=== PATIENT | male | born 1995 | race Caucasian/White ===

== ENCOUNTER 2023-08-14 10:45 | Emergency (ER) | payer MEDICAID, SELFPAY ==
[2023-08-14 10:51] VITALS: BP 178/93; PULSE 74; RESP 15; TEMP 36.9; O2SAT 98; BMI 30.9
--- NOTE | 2023-08-14 11:03 | XRR_ITS ---
PROCEDURE INFORMATION: Exam: XR Left Ankle Exam date and time: 08/14/2023 11:24 AM Age: 28 years old Clinical indication: Ankle; Left; Prior surgery; Surgery date: 6+ months; Patient HX: Pain swelling prev surgery; Additional info: Post operative pain TECHNIQUE: Imaging protocol: Radiologic exam of the left ankle. Views: 3 or more views. COMPARISON: No relevant prior studies available. FINDINGS: Tubes, catheters and devices: Intact hardware. Bones/joints: ORIF the distal tibia and fibula with syndesmotic repair as well. Anatomic alignment. Soft tissues: Normal. XR/XR ankle LT min 3V* [id number] IMPRESSION: Postoperative findings.
--- NOTE | 2023-08-14 11:03 | USCV_ITS ---
Noman Lord Age: 28 Gender: M : 1995 Exam Date: 08/14/2023 11:38 Ordering Phys: Malini Jones MD Technologist: ANTONY Exam Location: [facility] [place] Indication: LLE PAIN AND SWELLING HISTORY: Lower extremity swelling. Lower extremity pain. PROCEDURES: Venous duplex imaging was performed in only the left lower extremity. The following venous structures were evaluated: common femoral vein, profunda vein, proximal portion of the greater saphenous vein, superficial femoral vein, and the popliteal vein. In addition, the posterior tibial and peroneal trunk were evaluated. Serial compression, augmentation maneuvers, and spectral Doppler flow evaluation were performed. FINDINGS: + DVT seen in Left Pop vein into 1 of the Peroneal Veins Per oscar given to Dr. Jones CONCLUSIONS DVT LEFT popliteal vein and peroneal vein Remainder normal Prelim to Dr Jones at time of study Antelmo Rogel MD (Electronically Signed) Final Date: 14 August 2023 13:00 S
--- NOTE | 2023-08-14 11:05 | ED_ITS ---
HPI - Extremity Problem General: Chief complaint: Extremity Problem,Nontraumatic Stated complaint: left ankle pain and swelling Time Seen by Provider: 08/14/23 10:56 History of Present Illness: 28-year-old male who presents with left leg and left ankle pain and swelling. The patient is postoperative from recent ankle fracture repair. He states he has been released from wearing his postoperative boot. He states he has been walking on the leg more than he probably should be and because of that, he is developed pain in the ankle joint as well as swelling in the left lower leg from the knee down. He denies trauma to the area other than being up on it walking more than he probably was supposed to in the postoperative time. No fever. He denies shortness of breath or chest pain. No prior history of DVT or pulmonary emboli. He has not been taking anything for the pain. MD Complaint: extremity pain and joint swelling Review of Systems General: Reports: Other (Negative except per HPI, no fever) Physical Exam Narrative: EXAM NARRATIVE: Well-developed well-nourished white male in no acute distress HENMT: OTHER: Conjunctiva pink, mucous membranes are moist Resp: OTHER: Nonlabored respiratory effort Cardio: OTHER: Heart regular Extremity: LEFT LOWER EXTREMITY: Yes lower leg Left lower leg: Yes inspection (Left leg appears swollen from below the knee to include the ankle and foot ), Yes palpation (Tenderness of the left calf as well as the left ankle, negative Homans' sig) and Yes neurovascular exam (Intact distal neurovascular function, cap refills less than 2 seconds) and Yes ankle joint OTHER: Healed incisions over both the medial and lateral malleolar I without erythema or discharge. There is tenderness primarily over the medial malleolus region. Pulses are intact. Distal neurovascular function is intact. Course ED course: X-rays show postoperative changes with no lucency or displacement of the postoperative hardware. There is no acute fracture. Venous Doppler does show DVT extending from the popliteal vein into the peroneal veins. Will initiate Eliquis therapy. Will place a social sciences professor referral for follow-up with her primary care provider. Will have the patient follow-up with his orthopedic surgeon in the next couple of weeks. He has been instructed to elevate the leg when possible and wear compression stockings. It has been discussed with him the importance of him taking Eliquis. Return precautions have been discussed including increased pain, increased swelling, development of chest pain or shortness of breath Vital Signs: Vital signs: Vital Signs Temperature 98.4 F 08/14/23 10:51 Pulse Rate 74 08/14/23 10:51 Respiratory Rate 15 08/14/23 10:51 Blood Pressure 178/93 08/14/23 10:51 Pulse Oximetry 98 08/14/23 10:51 Oxygen Delivery Me thod Room Air 08/14/23 10:51 MDM - Extremity (Nontraumatic) Medical Decision Making Patient is postoperative from the left ankle ORIF from a recent fracture with both medial and lateral malleolar incisions which appear well-healed. Will obtain a plain x-ray to rule out new fracture or dislodgment of operative hardware. Will also obtain a venous Doppler to rule out a DVT as he has generalized swelling of the calf and tenderness of the left calf. There is no skin erythema or warmth and he is afebrile, I do not feel that it is likely cellulitis. Differential Diagnosis Likely gout, cellulitis, superficial thrombophlebitis, lower extremity edema and deep vein thrombosis of lower extremity Lab Data Radiology Impressions Ankle X-Ray 08/14/23 11:03 IMPRESSION: Postoperative findings. Imaging Data Xray Ortho: My impression: No acute fracture or dislocation, postoperative hardware appears intact without lucency or displacement. US Vascular: Radiologist's impression: Per household appliances service technician, patient with DVT extending from the popliteal to the peroneal veins. XR interpretation done by ED provider, pending radiology final review Discharge Plan Discharge Patient Disposition: Home Clinical Impression: Deep vein thrombosis of lower extremity Condition: Stable Prescriptions: New Eliquis DVT-PE Treat 30D Start 5 mg (74 tabs) tablets,dose pack See Rx Instructions .ROUTE .COMPLEX Qty: 74 0RF Rx Instructions: orally per package directions Discharge Orders: Discharge ED (Routine); Ordered 08/14/23 Ordered By: Malini Jones Patient Instructions: Opioid Safety, Pain Management Coding Level of Care Code ED Sample Checker for Gladis Rinaldi
[2023-08-14] MEDS: apixaban 5 mg Tablet 10 MG PO (12:10)
--- NOTE | 2023-08-14 12:27 | PC.NURSE ---
This nurse accidentally discharged this patient, the wrong patient, so I had to ask Registration to put the patient back into the computer.
--- NOTE | 2023-08-16 11:26 | DCPLANNER ---
I had an order for patient to establish care with a PCP for a DVT. I called the number in the patients chart and this patient is at [facility]. I spoke with Kirsten- Nurse and she said they already have their own Doctor at [facility] and the patient has already seen their Dr. Chapa. Kirsten said their is no need to get patient set up with a PCP.
== END 2023-08-14 12:54 | disposition home or self-care (01) ==
PROVIDERS: Emergency Provider Emergency Medicine
DX: I82.432 Acute embolism and thrombosis of left popliteal vein (principal); I82.452 Acute embolism and thrombosis of left peroneal vein
CPT/HCPCS: 73610; 93971; 99284